=== PATIENT | female | born 1985 | race African-American/Black ===

== ENCOUNTER 2017-02-03 14:49 | Emergency (ER) | payer OTHER ==
[~2017-02-03] VITALS: Ht 170.2 cm; Wt 65.8 kg
[2017-02-03 15:28] VITALS: BP 111/69
--- NOTE | 2017-02-03 19:57 | NUR ---
Patient ambulated to bed 08.
--- NOTE | 2017-02-03 20:08 | NUR ---
Dr. Bruce evaluating patient at bedside.
--- NOTE | 2017-02-03 20:10 | NUR ---
31 FEMALE CAME IN WITH VAGINAL DISCHARGE GREEN COLOR 3 1/2 WEEKS AGO. NO VOMITING, DIARRHEA. HISTORY OF NAUSEA. SORETHROAT FOR [address] SOMERS. DONE PELVIC EXAM. SPECIMEN SENT TO LAB.
--- NOTE | 2017-02-03 20:11 | NUR ---
Dr. Bruce at bedside for pelvic exam.
--- NOTE | 2017-02-03 20:15 | NUR ---
PELVIC EXAM DONE,SPECIMEN SENT TO LAB FOR CHLAMYDIA, AEROBIC CULTURE AND WET MOUNT.
[2017-02-03 20:25] VITALS: BP 122/78
--- NOTE | 2017-02-03 20:25 | NUR ---
Patient discharged with v/s stable. Written and verbal after care instructions given and explained WITH MD NOTE GIVEN BY DR. SOMERS TO THE PATIENT. Patient verbalized understanding. Ambulatory with steady gait. All questions addressed prior to discharge. Advised to follow up with PMD. DISCHARGED PER DR SOMERS.
[2017-02-06 06:19] LABS: CHLAMYDIA TRACHOMATIS AMP DNA Negative (Negative)
== END 2017-02-03 20:25 | disposition home or self-care (01) ==
LOC: MED 14:49
DX: N76.0 Acute vaginitis (principal); Z91.011 Allergy to milk products
CPT/HCPCS: 36415; 81002; 81025; 87070; 87210; 87491; 99284

== ENCOUNTER 2018-05-05 06:00 | Emergency (ER) | payer OTHER ==
[~2018-05-05] VITALS: Ht 165.1 cm; Wt 72.6 kg
--- NOTE | 2018-05-05 06:06 | NUR ---
Patient ambulated to bed 4. RN evaluating patient at bedside.
[2018-05-05 06:08] VITALS: BP 135/91
--- NOTE | 2018-05-05 06:10 | NUR ---
32/F CAME IN ED, C/O 310 LOWER BACK PAIN/TIGHTNESS, NONRADIATING, X8 HOURS. PT STATED SHE WAS SLIDING ON A SLIPPERY FLOOR, CAUGHT HER BALANCE, AND FELT PAIN. PT DENIES FALL OR TRAUMA. NO OBVIOUS ABNORMALITY NOTED. PT REPORTS SMOKING MARIJUANA WITH RELIEF. PT DENIES MED HX, RX. NKA. PT DENIES N/V/D; SKIN IS INTACT, PINK/WARM/DRY; AAOX4, PERRL, WITH EVEN AND STEADY GAIT; LUNGS CLEAR BL, BREATHING UNLABORED; HR EVEN AND REGULAR, BL PERIPHERAL PULSES PRESENT; BS ACTIVE X4, NO TENDERNESS TO PALPATION; PT DENIES ANY FEVER, CP, SOB, OR COUGH AT THIS TIME; VSS; PATIENT POSITIONED FOR COMFORT; HOB ELEVATED; BEDRAILS UP X2; BED DOWN. DR LOPEZ AT BEDSIDE TO EVALUATE PT.
[2018-05-05] MEDS ORDERED: KETOROLAC 30 MG/ML VIAL IM ONE (06:20)
[2018-05-05 06:59] VITALS: BP 128/83
--- NOTE | 2018-05-05 07:00 | NUR ---
Patient discharged with v/s stable. Written and verbal after care instructions given and explained. Patient alert, oriented and verbalized understanding of instructions. Ambulatory with steady gait. All questions addressed prior to discharge. ID band removed. Patient advised to follow up with PMD. Rx of IBUPROFEN 800MG, FLEXERIL 5MG given. Patient educated on indication of medication including possible reaction and side effects. Opportunity to ask questions provided and answered.
== END 2018-05-05 07:00 | disposition home or self-care (01) ==
LOC: MED 06:00
DX: S39.012A Strain of muscle, fascia and tendon of lower back, initial encounter (principal); Z91.011 Allergy to milk products; F12.10 Cannabis abuse, uncomplicated; W18.49XA Other slipping, tripping and stumbling without falling, initial encounter; Y93.89 Activity, other specified; Y99.0 Civilian activity done for income or pay; Y92.89 Other specified places as the place of occurrence of the external cause
CPT/HCPCS: 96372; 99283; J1885

== ENCOUNTER 2018-05-23 17:39 | Emergency (ER) | payer OTHER ==
[~2018-05-23] VITALS: Ht 165.1 cm; Wt 81.6 kg
[2018-05-23 17:43] VITALS: BP_SYST 11; BP_SYST 111; BP_DIAS 65
--- NOTE | 2018-05-23 17:49 | NUR ---
Patient ambulated to bed 2. RN evaluating patient at bedside.
--- NOTE | 2018-05-23 18:01 | NUR ---
C/O LOW BACK PAIN X 2 DAYS. WAS SEEN HERE 05/05/18 AND DC'D FOR BACK MUSCLE STRAIN, PRESCRIBED FLEXERILE AND MOTRIN S/P FALL ON 05/04/18. PT STATES SHE WAS CLEANING HER HOUSE AND HEARD A "POPPING" SOUND YESTERDAY. -BULDGING, -SWELLING, -BRUISING. HX: DENIES
--- NOTE | 2018-05-23 19:06 | NUR ---
REPORT GIVEN TO THERESA OAKLEY FOR CONTINUATION OF CARE
--- NOTE | 2018-05-23 19:10 | NUR ---
Pt report TAKEN FROM AL CARDENAS. Transfer of care at this time.
[2018-05-23] MEDS ORDERED: CYCLOBENZAPRINE 10 MG TAB PO ONE (19:40)
[2018-05-23] MEDS ORDERED: traMADol 50 MG TAB PO ONE (19:40)
--- NOTE | 2018-05-23 20:00 | NUR ---
PT STATED SHE DOESN'T WANT TO TAKE ANY MEDICATIONS BECAUSE SHE HAS TO DRIVE, PT REQUESTING CANNABIS PILLS, PT MADE AWARE THAT WE DON'T PRESCRIBE CANNABIS PILLS. Addendum: 05/23/18 at 2017 by [email or web address] ED AWARE.
[2018-05-23 20:11] VITALS: BP 120/88
--- NOTE | 2018-05-23 20:11 | NUR ---
Patient discharged with v/s stable. Written and verbal after care instructions given and explained. Patient alert, oriented and verbalized understanding of instructions. Ambulatory with steady gait. All questions addressed prior to discharge. ID band removed. Patient advised to follow up with PMD. Rx of TRAMADOL AND ROBAXIN given. Patient educated on indication of medication including possible reaction and side effects. Opportunity to ask questions provided and answered.
== END 2018-05-23 20:11 | disposition home or self-care (01) ==
LOC: MED 17:39
DX: M54.5 Low back pain (principal); Z88.6 Allergy status to analgesic agent; Z91.011 Allergy to milk products
CPT/HCPCS: 81002; 81025; 99283